=== PATIENT | male | born 1970 | race Caucasian/White ===

== ENCOUNTER 2016-09-08 18:07 | Emergency (ER) | payer MEDICARE ==
[~2016-09-08] VITALS: Ht 152.4 cm; Wt 67.9 kg
[2016-09-08] MEDS ORDERED: ONDANSETRON 2MG/ML, 2ML IVPush ONE (18:30)
[2016-09-08] MEDS ORDERED: SODIUM CHLORIDE FLUSH 10ML SYR IVF ONE (18:30)
[2016-09-08] MEDS ORDERED: SODIUM CHLORIDE 0.9% 1,000ML IVBOLUS ONE (18:30)
[2016-09-08 18:46] LABS: HEMOGLOBIN 15.1 g/dL (13.7-18.0)
[2016-09-08 18:49] LABS: PATH.CAST-FLAG NOT PRESENT; SPERM-FLAG NOT PRESENT; SRC-FLAG NOT PRESENT; XTAL-FLAG NOT PRESENT; YLC-FLAG NOT PRESENT
[2016-09-08 19:00] LABS: ASPARTATE AMINO TRANSFERASE 22 U/L (15-37); BLOOD UREA NITROGEN 34 mg/dL (7-18)
[2016-09-08] MEDS ORDERED: KETOROLAC 30 MG/1 ML IVPush ONE ×2 (20:30→22:00)
[2016-09-08] MEDS ORDERED: KETOROLAC 30 MG/1 ML ONE ×2 (20:43→21:57)
[2016-09-08] MEDS ORDERED: ONDANSETRON 2MG/ML, 2ML ONE (20:43)
[2016-09-08 20:54] VITALS: BP 113/79
[2016-09-08] MEDS ORDERED: HYDROmorphone 1 MG/ML, 1ML ONE ×2 (21:26→21:57)
[2016-09-08] MEDS: HYDROmorphone 1 MG/ML, 1ML IVPush PRN ×2 (21:29→22:07)
== END 2016-09-08 19:17 | disposition home or self-care (01) ==
LOC: ED 19:11
DX: R31.0 Gross hematuria (principal); N20.1 Calculus of ureter
CPT/HCPCS: 36415; 74176; 80053; 81001; 85025; 96361; 96374; 96375; 96376; 99285; J1170; J1885; J2405; J7030